=== PATIENT | male | born 1990 | race Caucasian/White ===

== ENCOUNTER 2018-08-24 10:51 | Inpatient (IN) | payer OTHER ==
[2018-08-24] MEDS ORDERED: SODIUM CHLORIDE 1,000 ML IV STA (11:22)
--- NOTE | 2018-08-24 11:31 | PDOC ---
History of Present Illness - General Chief Complaint: Redness To Affected Area Stated Complaint: SWOLLEN FOOT Time Seen by Provider: 08/24/18 11:13 History Source: Patient Exam Limitations: No Limitations - History of Present Illness Initial Comments: 08/24/18 11:08 67-hofd-csy-year-old obese male with no past medical history presents to ED with no redness swelling and pain to his left lower leg worsening in severity since . 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 Patient states has taken ibuprofen with good effect. Patient states no decreased sensation to his toes denies history of diabetes or venous-stasis ulcer Timing/Duration: getting worse Severity: mild, moderate Associated Symptoms: reports: denies symptoms Past History - Travel Traveled outside of the country in the last 30 days: No Close contact w/someone who was outside of country & ill: No - Past Medical History Allergies/Adverse Reactions: Allergies Allergy/AdvReac Type Severity Reaction Status Date / Time No Known Allergies Allergy Verified 08/24/18 10:59 Home Medications: Ambulatory Orders NK [No Known Home Medication] 08/24/18 COPD: No - Suicide/Smoking/Psychosocial Hx Smoking History: Never smoked Patient Lives Alone: No Lives with/in: spouse/SO Review of Systems - Review of Systems Able to Perform ROS?: Yes Is the patient limited [place] proficient: Yes Constitutional: No: Symptoms Reported HEENTM: No: Symptoms Reported Respiratory: No: Symptoms reported Integumentary: Yes: Bruising, Change in Color, Erythema Neurological: No: Symptoms reported Endocrine: No: Symptoms Reported Hematologic/Lymphatic: No: Symptoms Reported *Physical Exam - Vital Signs Last Vital Signs Temp Pulse Resp BP Pulse Ox 98.8 F 96 H 18 125/74 99 08/24/18 10:56 08/24/18 10:56 08/24/18 10:56 08/24/18 10:56 08/24/18 10:56 - Physical Exam General Appearance: Yes: Nourished, Appropriately Dressed. No: Apparent Distress Cardiovascular: positive: Edema (3+ pitting of left lower extremity) Vascular Pulses: Dorsalis-Pedis (R): 2+, Doralis-Pedis (L): 2+ Extremity: positive: Normal Range of Motion, Other (Noted diffuse edema and erythema extending from the left patella to the toes. Area warm to touch.). negative: Delayed Capillary Refill, Calf Tenderness Integumentary: positive: Erythema, Swelling, Ecchymosis Neurologic: positive: Motor Strength 5/5 (ambulatory with cane) ED Treatment Course - LABORATORY CBC & Chemistry Diagram: 08/24/18 12:12 08/24/18 12:12 - RADIOLOGY Radiology Studies Ordered: Category Date Time Status DUPLEX VASCUL US-1 LEG [US] Stat Ultrasound 08/24/18 11:23 Ordered Medical Decision Making - Medical Decision Making 08/24/18 11:18 Chief complaint: Worsening redness swelling and pain to left lower extremity after striking it against a metal bucket 4 days ago. Exam: Cellulitic left lower extremity concerning for DVT and early compartment syndrome secondary to extensive swelling Plan: Area circled with a permanent marker septic workup initiated along with a duplex CT with contrast and IV antibiotics. 08/24/18 13:26 Laboratory Tests 08/24/18 08/24/18 08/24/18 12:12 12:12 12:12 WBC 8.6 Hgb 13.8 Hct 40.9 Absolute Neuts (auto) 5.9 PT with INR 13.30 H INR 1.13 H VBG pH 7.42 H POC VBG pCO2 40.8 L VBG O2 Sat ([place]) 58.6 L Sodium Potassium Chloride Carbon Dioxide Anion Gap BUN Creatinine Random Glucose Lactic Acid Calcium Total Bilirubin AST ALT Troponin I 08/24/18 08/24/18 12:12 12:12 WBC Hgb Hct Absolute Neuts (auto) PT with INR INR VBG pH POC VBG pCO2 VBG O2 Sat ([place]) Sodium 137 Potassium 4.0 Chloride 105 Carbon Dioxide 26 Anion Gap 7 L BUN 11.6 Creatinine 0.9 Random Glucose 96 Lactic Acid 0.7 Calcium 8.5 Total Bilirubin 0.5 AST 20 ALT 63 H Troponin I < 0.02 Duplex of the lower extremity negative for acute pathology 08/24/18 16:08 CT of the lower extremity shows infiltrative/inflammatory changes involving the soft tissue mostly anteriorly and laterally of the visualized lower extremity compatible with cellulitis. There is a localized fluid collection located at the level of the anterior proximal tibia soft tissues measuring approximately 2.6 x 1.3 cm it is most likely represents a loculated fluid collection. No air lucency within no acute fractures identified. Micro blog sent to hospitalist 08/24/18 16:48 Case discussed With attending hospitalist and will admit to [facility]. Loculated fluid concerning for possible abscess will discussed with radiologist if able to differentiate between blood versus purulent collection *DC/Admit/Observation/Transfer Diagnosis at time of Disposition: Hematoma, Cellulitis - Discharge Dispostion Condition at time of disposition: Fair Decision to Admit order: Yes - Referrals - Patient Instructions - Post Discharge Activity
--- NOTE | 2018-08-24 11:53 | PDOC ---
*Physical Exam - Vital Signs Last Vital Signs Temp Pulse Resp BP Pulse Ox 98.8 F 96 H 18 125/74 99 08/24/18 10:56 08/24/18 10:56 08/24/18 10:56 08/24/18 10:56 08/24/18 10:56 - Physical Exam Comments: 08/24/18 11:49 gen: aaox3, walks with a cane (new) Ext: LLE with swelling, edema, anterior large hematoma, calf swelling, surrounding erythema from ankle to knee, warm to touch, compartments soft, no pain with passive extension, brisk cap refill, sensation intact, muscle strength intact, pulses intact Medical Decision Making - Medical Decision Making 08/24/18 11:52 a/p: 28yo male with local trauma to L anterior calf now with surrounding cellulitis -pt with large hematoma/ecchymotic region to anterior calf, diffuse leg swelling with cellulitis -will need labs, iv abx, ultrasound, admission, ct LE w contrast *DC/Admit/Observation/Transfer Diagnosis at time of Disposition: Hematoma, Cellulitis - Discharge Dispostion Condition at time of disposition: Fair Decision to Admit order: Yes - Referrals - Patient Instructions - Post Discharge Activity
[2018-08-24] MEDS ORDERED: VANCOMYCIN 1,000 MG in DEXTROSE 5%-WATER - 250 ML IVPB ONE (12:20)
[2018-08-24] MEDS ORDERED: PIPERACILLIN/TAZOB 4.5 GM 4.5 GM in DEXTROSE 5%-WATER 100 ML IVPB ONE (12:20)
[2018-08-24] MEDS ORDERED: VANCOMYCIN 500 MG VIAL (RESTRICTED TO ID ONLY) ONE (12:51)
[2018-08-24] MEDS ORDERED: PIPERACILLIN/TAZOB 4.5 GM 4.5 GM/100 ML BAG IVPB ONE (12:51)
[2018-08-24 12:57] LABS: VENOUS PC02 40.8 mmHg (41-51); VENOUS PH 7.42 (7.31-7.41); VENOUS PO2 31.3 mmHg (30-40)
[2018-08-24 12:58] LABS: BASO % 0.3 % (0-2.0); EOS % 1.4 % (0-4.5); HEMATOCRIT 40.9 % (35.4-49); HEMOGLOBIN 13.8 GM/dL (11.7-16.9); MCH 29.4 pg (25.7-33.7); MCHC 33.8 g/dl (32.0-35.9); MEAN CELL VOLUME 87.1 fl (80-96); MEAN PLT VOLUME 7.6 fl (7.5-11.1); MONO % 11.6 % (3.8-10.2); NEUT % 68.7 % (42.8-82.8); RDW 13.9 % (11.9-15.9); WHITE BLOOD COUNT 8.6 K/mm3 (4.0-10.0)
[2018-08-24 13:16] LABS: INR 1.13 (0.83-1.09); PLATELET COUNT 275 K/MM3 (134-434); PROTHROMBIN TIME (PATIENT) 13.3 SEC (9.7-13.0)
[2018-08-24 13:18] LABS: ACTIVATED PTT 32.4 SECONDS (25.2-36.5)
[2018-08-24 13:19] LABS: ALBUMIN 3.7 g/dl (3.4-5.0); ALK PHOS 91 U/L (45-117); ANION GAP 7 MMOL/L (8-16); BILIRUBIN,TOTAL 0.5 mg/dL (0.2-1); BLOOD UREA NITROGEN 11.6 mg/dL (7-18); CALCIUM 8.5 mg/dL (8.5-10.1); CHLORIDE 105 mmol/L (98-107); CO2 26 mmol/L (21-32); CREATININE 0.9 mg/dL (0.55-1.3); GLUCOSE,RANDOM 96 mg/dL (74-106); SGOT/AST 20 U/L (15-37); SGPT/ALT 63 U/L (13-61); SODIUM 137 mmol/L (136-145); TOT PROT 7.5 g/dl (6.4-8.2)
[2018-08-24 15:31] LABS: PH,URINE 6.5 (5.0-8.0); URINE APPEARANCE CLEAR; URINE BILIRUBIN NEGATIVE (NEGATIVE); URINE COLOR YELLOW; URINE GLUCOSE (UA) NEGATIVE (NEGATIVE); URINE KETONE NEGATIVE (NEGATIVE); URINE LEUK ESTERASE NEGATIVE (NEGATIVE); URINE NITRITE NEGATIVE (NEGATIVE); URINE PROTEIN NEGATIVE (NEGATIVE); URINE UROBILINOGEN 0.2 mg/dL (0.2-1.0)
[2018-08-24] MEDS ORDERED: DIPHTH,PERTUSS(ACELL),TET 0.5 ML DISP.SYRIN IM ONE (17:34)
--- NOTE | 2018-08-24 17:47 | HP ---
CHIEF COMPLAINT: LE swelling, erythema PCP: none HISTORY OF PRESENT ILLNESS: 28 y/o M with morbid obesity w/ no PMH who presents to the ED c/o LE swelling and erythema for the past four days to his LLE after injuring it on Saturday. As per pt, he works as a escrow officer. On Saturday, 08/22, he was at work passing supplies to his coworker when he hit his LLE on a clean metal bucket. States that he was distracted and had not seen it in his way. Later that evening, he developed a subjective fever at home and myalgias in his upper extremities. Did not have any immediate bruising to his leg after the incident. The subsequent day, he woke up to find a large erythematous rash on the anterior portion of his LLE. States that it was mildly painful and edematous. However, he was still able to go clubbing with friends that night. On Saturday, pt noticed that the edema had become worse, as well as the erythema thus he decided to come to the ED for further evaluation. During this time, his pain was mildly alleviated by advil and topical antibiotic application to the area. Denies current SPARKS, fever, chills , SOB, chest pain or pressure or changes in urinary or bowel function. Pt states he never received a tetanus vaccine as he does not have insurance. No drug injection to area. ER course was notable for: (1) IV NS 1L (2) vanc, zosyn (3) Recent Travel: denies PAST MEDICAL HISTORY: as above PAST SURGICAL HISTORY: denies Social History: works as a escrow officer. Smoking: tried for 1 yr however quit Alcohol: social Drugs: used cocaine 1x in past. never IVDA Family History: mother - DM Allergies No Known Allergies Allergy (Verified 08/24/18 10:59) HOME MEDICATIONS: Home Medications Medication Instructions Recorded NK [No Known Home Medication] 08/24/18 confirmed with patient REVIEW OF SYSTEMS +subjective fever +myalgias +erythema, edema to LLE PHYSICAL EXAMINATION Vital Signs - 24 hr 08/24/18 08/24/18 10:56 17:25 Temperature 98.8 F 98.7 F Pulse Rate 96 H Pulse Rate [ 90 Right Brachial] Respiratory 18 19 Rate Blood Pressure 125/74 Blood Pressure 142/78 [Left Arm] O2 Sat by Pulse 99 97 Oximetry (%) GENERAL: Pleasant. morbidly obese M. in NAD HEAD: Normal with no signs of trauma. EYES: Pupils equal, round and reactive to light, extraocular movements intact, sclera anicteric, conjunctiva clear. EARS, NOSE, THROAT: Ears normal, nares patent, oropharynx clear without exudates. Moist mucous membranes. NECK: Normal range of motion, supple LUNGS:+distant breath sounds d/t body habitus, clear to auscultation bilaterally. No wheezes, and no crackles. No accessory muscle use. HEART: Regular rate and rhythm, normal S1 and S2 without murmur, rub or gallop. ABDOMEN: Soft, obese, nontender, not distended, normoactive bowel sounds, no guarding, no rebound LOWER EXTREMITIES: 2+ dp pulses. +LLE: w/anterior superficial hematoma over mares , without TTP. +warmth, 1-2+ pitting edema. NEUROLOGICAL: Cranial nerves II-XII intact. PSYCHIATRIC: Cooperative. Laboratory Results 08/24/18 08/24/18 08/24/18 12:12 12:12 12:12 WBC 8.6 Hgb 13.8 Hct 40.9 Plt Count 275 PT with INR 13.30 H INR 1.13 H PTT (Actin FS) 32.4 Sodium 137 Potassium 4.0 Chloride 105 Anion Gap 7 L BUN 11.6 Creatinine 0.9 AST 20 ALT 63 H Alkaline Phosphatase 91 08/24/18 13:55 Alkaline Phosphatase Urine Protein Negative Urine Glucose (UA) Negative Urine Ketones Negative Urine Blood Negative Urine Nitrite Negative Urine Bilirubin Negative EKG: NSR, vent rate 86bpm, qtc 409ms. no st-t wave changes CT LE: cellulitis and localized fluid at anterior prox tibia 2.6x1.3cm loculated fluid ASSESSMENT/PLAN: 28 y/o M with morbid obesity w/ no PMH who presents to the ED c/o LE swelling and erythema for the past four days to his LLE after injuring it on Saturday. #LLE Cellulitis -not septic. s/p injury on clean bucket. as pt has not received tetanus vacc before will give tdap. -c/w vanc 2g IVPB qd (loading dose d/t increased wt), zosyn -f/u blood cx -will need surgery consult in AM as w/loculated fluid. to determine drainage, etc. has coags. will order T+S -f/u a1c, HIV -ID consult: Dr. Zhou #morbid obesity -will benefit from bariatric referral on d/c #F/E/N no IVF required at this time continue to follow lytes cholesterol-controlled diet. NPO after MN in case of procedure #PPX DVT: lovenox. hold after MN as above. #Dispo admit to med-surg Visit type - Emergency Visit Emergency Visit: Yes ED Registration Date: 08/24/18 Care time: The patient presented to the Emergency Department on the above date and was hospitalized for further evaluation of their emergent condition. - New Patient This patient is new to me today: Yes Date on this admission: 08/24/18 - Critical Care Critical Care patient: No
--- NOTE | 2018-08-24 17:56 | PN ---
Teaching Attending Note Name of Resident: Thalia Gonzales ATTENDING PHYSICIAN STATEMENT I saw and evaluated the patient. I reviewed the resident's note and discussed the case with the resident. I agree with the resident's findings and plan as documented. SUBJECTIVE: 28yo M wtih PMH morbid obesity presenting to the ER wtih LLE pain and erythema. states he kicked a metal bucket 3 days ago. started developing erythema, pain and swelling in the leg over the past 2 days. with subjective fevers and body aches today which prompted him to come to the ER. denies CP, N/V/C/D. never received tetanus vaccine. does not take medications. denies IVDA OBJECTIVE: Last Vital Signs Temp Pulse Resp BP Pulse Ox 98.7 F 90 19 142/78 97 08/24/18 17:25 08/24/18 17:25 08/24/18 17:25 08/24/18 17:25 08/24/18 17:25 General NAD CV S1 S2 RRR no murmur/rub/gallop Lungs CTA B/l no wheezing/rales/rhonchi abdomen soft NT/ND obese Extremities LLE erythema to mid mares more prominent anteriorly then light streaking circumferential, warm, tender mild fluctuance lateral to mid mares. pulse intact ASSESSMENT AND PLAN: 28yo M with PMH morbid obesity presenting to the ER with LLE cellulitis with questionable abscess 1. LLE cellulitis with abscess-afebrile no leukocytosis. loculated collection seen on CT scan most likely represents abscess. will possibly require drainage. received vanco and zosyn in the ER. will need tetanus vaccine. claims bucket was clean and new, no signs of rust. check HIV and A1c. f/u Bcx (obtained prior to abx given) 2. Morbid obesity- BMI 46. would benefit from bariatric surgery. referral on discharge 3. DVT ppx- lovenox
[2018-08-24] MEDS ORDERED: ENOXAPARIN NA (PORCINE) 40 MG/0.4 ML DISP.SYRIN SQ SCH (18:00)
[2018-08-24] MEDS ORDERED: ENOXAPARIN NA (PORCINE) 80 MG/0.8 ML DISP.SYRIN SQ ONE (18:12)
[2018-08-24] MEDS ORDERED: PIPERACILLIN/TAZOBACTAM 3.375 GM VIAL IVPB ONE (20:48)
[2018-08-24] MEDS ORDERED: DEXTROSE 5%-WATER - 50 ML IVPB ONE (20:49)
[2018-08-24] MEDS: PIPERACILLIN/TAZOB 3.375 GM 3.375 GM in DEXTROSE 5%-WATER - 50 ML IVPB SCH (20:50)
[2018-08-25] MEDS ORDERED: PIPERACILLIN/TAZOBACTAM 3.375 GM VIAL IVPB ONE (03:11)
[2018-08-25] MEDS ORDERED: DEXTROSE 5%-WATER - 50 ML IVPB ONE (03:12)
[2018-08-25] MEDS: PIPERACILLIN/TAZOB 3.375 GM 3.375 GM in DEXTROSE 5%-WATER - 50 ML IVPB SCH ×4 (03:25→14:37)
[2018-08-25 07:17] LABS: BASO % 0.3 % (0-2.0); EOS % 2.3 % (0-4.5); HEMOGLOBIN 13.9 GM/dL (11.7-16.9); LYMPH % 26.4 % (8-40); MCH 29.5 pg (25.7-33.7); MEAN CELL VOLUME 86.8 fl (80-96); MEAN PLT VOLUME 7.4 fl (7.5-11.1); MONO % 10.4 % (3.8-10.2); NEUT % 60.6 % (42.8-82.8); PLATELET COUNT 301 K/MM3 (134-434); RBC 4.72 M/mm3 (4.00-5.60); WHITE BLOOD COUNT 7.5 K/mm3 (4.0-10.0)
[2018-08-25 07:40] LABS: BLOOD UREA NITROGEN 12.3 mg/dL (7-18); CALCIUM 8.5 mg/dL (8.5-10.1); CREATININE 0.9 mg/dL (0.55-1.3); MAGNESIUM 2.5 mg/dL (1.8-2.4); PHOSPHOROUS 3.6 mg/dL (2.5-4.9); POTASSIUM 4.1 mmol/L (3.5-5.1)
--- NOTE | 2018-08-25 09:38 | EKG ---
Test Reason : Blood Pressure : / mmHG Vent. Rate : 086 BPM Atrial Rate : 086 BPM P-R Int : 164 ms QRS Dur : 084 ms QT Int : 342 ms P-R-T Axes : 028 010 021 degrees QTc Int : 409 ms NORMAL SINUS RHYTHM NORMAL ECG NO PREVIOUS ECGS AVAILABLE Confirmed by LEWIS MONROY MD ([id number]) on 08/25/2018 9:38:09 AM Referred By: Confirmed By:LEWIS MONROY MD
--- NOTE | 2018-08-25 10:30 | CONSULT ---
- Consultation REQUESTING PROVIDER: Castro NORIEGA CONSULT REQUEST: We have been asked to surgically evaluate this patient for post traumatic soft tissue injuries and cellulitis of the LLE. PCP:Parul Erazo HISTORY OF PRESENT ILLNESS: Blunt trauma to LLE # days ago; developed pain and swelling and a rash and came to the ER for evaluation. PMHx: none PSHx: none Home Medications Medication Instructions Recorded NK [No Known Home Medication] 08/24/18 Allergies Allergy/AdvReac Type Severity Reaction Status Date / Time No Known Allergies Allergy Verified 08/24/18 10:59 REVIEW OF SYSTEMS: CONSTITUTIONAL: Absent: fever, chills, diaphoresis, generalized weakness, malaise, loss of appetite, weight change CARDIOVASCULAR: Absent: chest pain, syncope, palpitations, irregular heart rate, lightheadedness , peripheral edema RESPIRATORY: Absent: cough, shortness of breath, dyspnea with exertion, wheezing, stridor, hemoptysis GASTROINTESTINAL: Absent: abdominal pain, abdominal distension, nausea, vomiting, diarrhea, constipation, melena, hematochezia GENITOURINARY: Absent: dysuria, frequency, urgency, hesitancy, hematuria, flank pain, genital pain MUSCULOSKELETAL: Absent: myalgia, arthralgia, joint swelling, back pain, neck pain SKIN: Absent: rash, itching, pallor HEMATOLOGIC/IMMUNOLOGIC: Absent: easy bleeding, easy bruising, lymphadenopathy NEUROLOGIC: Absent: headache, focal weakness, paresthesias, dizziness, unsteady gait, seizure, mental status changes, bladder or bowel incontinence PSYCHIATRIC: Absent: anxiety, depression, suicidal or homicidal ideation, hallucinations. PHYSICAL EXAM: GENERAL: Awake, alert, and fully oriented, in no acute distress. HEAD: Normal with no signs of trauma. EYES: sclera anicteric, conjunctiva clear. NECK: Normal ROM, supple without lymphadenopathy, JVD, or masses. ABDOMEN: Soft, nontender, not distended, normoactive bowel sounds, no guarding, no rebound, no masses. No organomegaly. MUSCULOSKELETAL: Normal ROM at all joints. No bony deformities or tenderness. No CVA tenderness. UPPER EXTREMITIES: 2+ pulses, warm, well-perfused. No cyanosis. Cap refill <2 seconds. No peripheral edema. LOWER EXTREMITIES: 2+ pulses, warm, well-perfused. No calf tenderness. No peripheral edema. NEUROLOGICAL: Normal speech, gait not observed. PSYCH: Cooperative. Good eye contact. Appropriate mood and affect. SKIN: Warm, dry, normal turgor, erythema of the LLE below the knee w/minimal ttp ; sensation intact; ?erysepalis ? type rash present w/minimal surrounding warmth ; there is mild to moderate sts; ther is no calf tenderness or pain on active and PROM; o/w negative. Vital Signs Temperature 98.3 F 08/25/18 08:05 Pulse Rate 87 08/25/18 08:05 Respiratory Rate 18 08/25/18 08:05 Blood Pressure 147/88 08/25/18 08:05 O2 Sat by Pulse Oximetry (%) 97 08/24/18 17:25 Lab Results WBC 7.5 K/mm3 (4.0-10.0) 08/25/18 06:40 RBC 4.72 M/mm3 (4.00-5.60) 08/25/18 06:40 Hgb 13.9 GM/dL (11.7-16.9) 08/25/18 06:40 Hct 41.0 % (35.4-49) 08/25/18 06:40 MCV 86.8 fl (80-96) 08/25/18 06:40 MCHC 34.0 g/dl (32.0-35.9) 08/25/18 06:40 RDW 14.0 % (11.9-15.9) 08/25/18 06:40 Plt Count 301 K/MM3 (134-434) 08/25/18 06:40 Sodium 139 mmol/L (136-145) 08/25/18 06:40 Potassium 4.1 mmol/L (3.5-5.1) 08/25/18 06:40 Chloride 106 mmol/L (98-107) 08/25/18 06:40 Carbon Dioxide 26 mmol/L (21-32) 08/25/18 06:40 Anion Gap 8 MMOL/L (8-16) 08/25/18 06:40 BUN 12.3 mg/dL (7-18) 08/25/18 06:40 Creatinine 0.9 mg/dL (0.55-1.3) 08/25/18 06:40 Random Glucose 96 mg/dL (74-106) 08/25/18 06:40 Calcium 8.5 mg/dL (8.5-10.1) 08/25/18 06:40 Blood Type O POSITIVE 08/24/18 19:58 Antibody Screen Negative 08/24/18 17:50 INR 1.13 (0.83-1.09) H 08/24/18 12:12 CT LLE reviewed IMP: post traumatic soft tissue injury LLE w/cellulitis PLAN: Suggest leg elevation; no clinical evidence of a collection; would monitor w/frequent exams; IVAB's as indicated; will f/u. D/w Dr. Jak Erazo. Aydin Carrington MD FACS
[2018-08-25] MEDS ORDERED: VANCOMYCIN 2,000 MG in DEXTROSE 5%-WATER - 500 ML IVPB ONE (12:00)
[2018-08-25] MEDS ORDERED: VANCOMYCIN 2,000 MG in DEXTROSE 5%-WATER - 500 ML IVPB SCH (12:00)
[2018-08-25] MEDS ORDERED: VANCOMYCIN HCL 1,500 MG in DEXTROSE 5%-WATER - 250 ML IVPB SCH (12:45)
--- NOTE | 2018-08-25 12:52 | PN ---
Progress Note (short form) - Note Progress Note: ID CONSULT DICTATED CELLULITIS L LE ? INFECTED HEMATOMA + BC GPCCL R/O STAPH BACTEREMIA SECONDARY TO SKIN FOCUS REPEAT BC EMPIRIC VANCOMYCIN/ CEFTRIAXONE
--- NOTE | 2018-08-25 13:11 | PN ---
Physical Exam: SUBJECTIVE: Patient seen and examined at bedside. Pt stated that pain is improving. only feels pressure when palpated or tries walking. OBJECTIVE: Vital Signs Period Temp Pulse Resp BP Sys/Lorenzo Pulse Ox Last 24 Hr 98.3 F-98.8 F 86-100 18-19 131-149/53-88 97-98 GENERAL: The patient is awake, alert, and fully oriented, in no acute distress. HEAD: Normal with no signs of trauma. EYES: extraocular movements intact LUNGS: Breath sounds equal, clear to auscultation bilaterally, no wheezes, no crackles, no accessory muscle use. HEART: Regular rate and rhythm, S1, S2 without murmur, rub or gallop. ABDOMEN: Soft, nontender, nondistended, normoactive bowel sounds. EXTREMITIES: LLE circumferential erythema and swelling. PSYCH: Normal mood, normal affect. Laboratory Results - last 24 hr 08/24/18 08/24/18 08/24/18 12:12 12:12 12:12 WBC 8.6 RBC 4.70 Hgb 13.8 Hct 40.9 MCV 87.1 MCH 29.4 MCHC 33.8 RDW 13.9 Plt Count 275 MPV 7.6 Absolute Neuts (auto) 5.9 Neutrophils % 68.7 Lymphocytes % 18.0 Monocytes % 11.6 H Eosinophils % 1.4 Basophils % 0.3 Nucleated RBC % 0 PT with INR 13.30 H INR 1.13 H PTT (Actin FS) 32.4 VBG pH 7.42 H POC VBG pCO2 40.8 L POC VBG pO2 31.3 VBG HCO3 25.9 VBG O2 Sat ([place]) 58.6 L VBG Base Excess 1.7 Sodium Potassium Chloride Carbon Dioxide Anion Gap BUN Creatinine Est GFR (CKD-EPI)AfAm Est GFR (CKD-EPI)NonAf Random Glucose Hemoglobin A1c % Lactic Acid Calcium Phosphorus Magnesium Total Bilirubin AST ALT Alkaline Phosphatase Troponin I Total Protein Albumin Urine Color Urine Appearance Urine pH Ur Specific Goodman Urine Protein Urine Glucose (UA) Urine Ketones Urine Blood Urine Nitrite Urine Bilirubin Urine Urobilinogen Ur Leukocyte Esterase HIV 1&2 Antibody Screen HIV P24 Antigen Blood Type Antibody Screen 08/24/18 08/24/18 08/24/18 12:12 12:12 13:55 WBC RBC Hgb Hct MCV MCH MCHC RDW Plt Count MPV Absolute Neuts (auto) Neutrophils % Lymphocytes % Monocytes % Eosinophils % Basophils % Nucleated RBC % PT with INR INR PTT (Actin FS) VBG pH POC VBG pCO2 POC VBG pO2 VBG HCO3 VBG O2 Sat ([place]) VBG Base Excess Sodium 137 Potassium 4.0 Chloride 105 Carbon Dioxide 26 Anion Gap 7 L BUN 11.6 Creatinine 0.9 Est GFR (CKD-EPI)AfAm 132.37 Est GFR (CKD-EPI)NonAf 114.21 Random Glucose 96 Hemoglobin A1c % Lactic Acid 0.7 Calcium 8.5 Phosphorus Magnesium Total Bilirubin 0.5 AST 20 ALT 63 H Alkaline Phosphatase 91 Troponin I < 0.02 Total Protein 7.5 Albumin 3.7 Urine Color Yellow Urine Appearance Clear Urine pH 6.5 Ur Specific Goodman 1.013 Urine Protein Negative Urine Glucose (UA) Negative Urine Ketones Negative Urine Blood Negative Urine Nitrite Negative Urine Bilirubin Negative Urine Urobilinogen 0.2 Ur Leukocyte Esterase Negative HIV 1&2 Antibody Screen HIV P24 Antigen Blood Type Antibody Screen 08/24/18 08/24/18 08/24/18 17:50 17:50 17:50 WBC RBC Hgb Hct MCV MCH MCHC RDW Plt Count MPV Absolute Neuts (auto) Neutrophils % Lymphocytes % Monocytes % Eosinophils % Basophils % Nucleated RBC % PT with INR INR PTT (Actin FS) VBG pH POC VBG pCO2 POC VBG pO2 VBG HCO3 VBG O2 Sat ([place]) VBG Base Excess Sodium Potassium Chloride Carbon Dioxide Anion Gap BUN Creatinine Est GFR (CKD-EPI)AfAm Est GFR (CKD-EPI)NonAf Random Glucose Hemoglobin A1c % 6.0 Lactic Acid Calcium Phosphorus Magnesium Total Bilirubin AST ALT Alkaline Phosphatase Troponin I Total Protein Albumin Urine Color Urine Appearance Urine pH Ur Specific Goodman Urine Protein Urine Glucose (UA) Urine Ketones Urine Blood Urine Nitrite Urine Bilirubin Urine Urobilinogen Ur Leukocyte Esterase HIV 1&2 Antibody Screen Negative HIV P24 Antigen Negative Blood Type O POSITIVE Antibody Screen Negative 08/24/18 08/25/18 08/25/18 19:58 06:40 06:40 WBC 7.5 RBC 4.72 Hgb 13.9 Hct 41.0 MCV 86.8 MCH 29.5 MCHC 34.0 RDW 14.0 Plt Count 301 MPV 7.4 L Absolute Neuts (auto) 4.6 Neutrophils % 60.6 Lymphocytes % 26.4 D Monocytes % 10.4 H Eosinophils % 2.3 Basophils % 0.3 Nucleated RBC % 0 PT with INR INR PTT (Actin FS) VBG pH POC VBG pCO2 POC VBG pO2 VBG HCO3 VBG O2 Sat ([place]) VBG Base Excess Sodium 139 Potassium 4.1 Chloride 106 Carbon Dioxide 26 Anion Gap 8 BUN 12.3 Creatinine 0.9 Est GFR (CKD-EPI)AfAm 132.37 Est GFR (CKD-EPI)NonAf 114.21 Random Glucose 96 Hemoglobin A1c % Lactic Acid Calcium 8.5 Phosphorus 3.6 Magnesium 2.5 H Total Bilirubin AST ALT Alkaline Phosphatase Troponin I Total Protein Albumin Urine Color Urine Appearance Urine pH Ur Specific Goodman Urine Protein Urine Glucose (UA) Urine Ketones Urine Blood Urine Nitrite Urine Bilirubin Urine Urobilinogen Ur Leukocyte Esterase HIV 1&2 Antibody Screen HIV P24 Antigen Blood Type O POSITIVE Antibody Screen Active Medications Generic Name Dose Route Start Last Admin Trade Name Freq PRN Reason Stop Dose Admin Ceftriaxone Sodium 2 gm/ 100 mls @ 200 mls/hr 08/25/18 13:00 Dextrose IVPB DAILY MARCELA Protocol Vancomycin HCl 1,500 mg/ 500 mls @ 250 mls/hr 08/25/18 12:53 Dextrose IVPB Q12H [facility] Protocol CBC, BMP 08/25/18 06:40 08/25/18 06:40 Microbiology 08/24/18 12:12 Blood - Peripheral Venous Blood Culture - Preliminary NO GROWTH OBTAINED AFTER 24 HOURS, INCUBATION TO CONTINUE FOR 4 DAYS. 08/24/18 12:40 Blood - Peripheral Venous Blood Culture - Preliminary Pending Organism ASSESSMENT/PLAN: pt is 28 yo obese M admitted with LLE cellulitis. Pt was started on Vanc and zosyn on 08/24. Blood cultures obtained. Swelling and erythema improving. 1. Cellulitis - follow ID recs Empiric vancomycin/cefriaxone -pt afebrile, no leukocytosis -1 bottle from blood culture showed gram + cocci. awaiting results from 2nd blood culture -leg elevation -pt followed by surgery 2. Obesity -Counseled on diet and exercise -HbA1c: 6.0 -bariatric referral on d/c 3. DVT ppx- Lovenox 40mg Visit type - Emergency Visit Emergency Visit: No - New Patient This patient is new to me today: No - Critical Care Critical Care patient: No
--- NOTE | 2018-08-25 13:27 | CONS ---
INFECTIOUS DISEASE CONSULTATION DATE OF CONSULTATION: DATE OF DICTATION: 08/25/2018 HISTORY: The patient is a 28-year-old morbidly obese male who was evaluated for cellulitis of the left lower extremity. He reports that he had sustained blunt trauma to his left mares after striking it against a metal bucket on July. Initially, he did not notice any significant injury. Over the next 24 hours, he developed worsening erythema, warmth, swelling, and pain of the left lower extremity. He presented to the emergency room with marked left lower extremity swelling as well as an area of cellulitis present over the pretibial area. He was empirically treated with vancomycin and Zosyn. Blood cultures obtained on admission are positive for gram-positive cocci in clusters in 1 bottle. He did report subjective fever. Denies any shaking chills. Denies prior history of serious soft tissue infection requiring hospitalization or history of MRSA. A Doppler was performed and was negative for DVT. CAT scan, however, showed a focal fluid collection in the pretibial area. He was seen in consultation by Surgery and advised to treat medically. He reports significant improvement in the swelling, erythema, and pain of the left lower extremity. He had been unable to ambulate previously secondary to the pain. PAST MEDICAL HISTORY: Negative. ALLERGIES: No known allergies. LABORATORY DATA: White count 7.5, creatinine 0.9. Urinalysis negative. Blood cultures: Gram-positive cocci in clusters in 1 bottle. PHYSICAL EXAMINATION: General: He is awake and alert. He is not acutely toxic appearing. Morbidly obese. Vital Signs: Temperature 98.3, blood pressure 147/88, pulse 87 regular, respirations 18 per minute. HEENT: Sclerae anicteric. Heart: Sounds S1, S2. Lungs: Clear. Abdomen: Obese, soft, nontender. Extremities: Examination of the lower extremities, there is diffuse swelling of the left lower extremity from below the knee to the foot. There is a patchy area of well-circumscribed erythema, which is intensely red approximately 5 x 12 cm below the left knee. It is warm to touch and tender. There is no lymphangitic streaking. No crepitus or fluctuance. IMPRESSION: 1. Cellulitis, left lower extremity status post traumatic injury. 2. Rule out infected hematoma. 3. Positive blood cultures, rule out Staphylococcal bacteremia secondary to skin focus. PLAN: Repeat blood cultures. Empiric antibiotic coverage with vancomycin and ceftriaxone. Elevation. Await identification of blood isolet. Further recommendations pending cultures. We will follow. Thank you for the kind referral. JOSE ROLDAN M.D. [id number]
--- NOTE | 2018-08-25 14:38 | PN ---
Teaching Attending Note Name of Resident: Madison Escudero ATTENDING PHYSICIAN STATEMENT I saw and evaluated the patient. I reviewed the resident's note and discussed the case with the resident. I agree with the resident's findings and plan as documented. SUBJECTIVE:states swelling and pain improved. denies Cp, SOB, fever, chills OBJECTIVE: Last Vital Signs Temp Pulse Resp BP Pulse Ox 98.4 F 86 18 137/88 97 08/25/18 12:00 08/25/18 12:00 08/25/18 12:00 08/25/18 12:00 08/25/18 09:00 General NAD Extremities LLE erythema to mid mares more prominent anteriorly circumferential erythema mostly resolved. area remains warm but not tender. pulse intact ASSESSMENT AND PLAN: 28yo M with PMH morbid obesity presenting to the ER with LLE cellulitis with questionable abscess 1. LLE cellulitis with Bacteremia- modest improvement since yesterday. seen by surgery and no abscess at this time to drain. Bcx showing GPC in 1 bottle. could be contamination. repeat Bcx sent. on Ceftriaxone and zosyn day 2. A1c and HIV are negative. received tetanus vaccine. f/u official cx report 2. Morbid obesity- BMI 46. would benefit from bariatric surgery. referral on discharge 3. DVT ppx- lovenox 4. spoke with present at bedside. all questions answered. verbalized understanding and agreement
[2018-08-25] MEDS ORDERED: DEXTROSE 5%-WATER 100 ML IVPB ONE (14:51)
[2018-08-25] MEDS: CEFTRIAXONE 2 GM in DEXTROSE 5%-WATER 100 ML IVPB SCH (14:53)
[2018-08-25] MEDS: VANCOMYCIN HCL 1,500 MG in DEXTROSE 5%-WATER - 500 ML IVPB SCH (14:54)
[2018-08-25] MEDS: ENOXAPARIN NA (PORCINE) 40 MG/0.4 ML DISP.SYRIN SQ SCH (22:11)
[2018-08-26] MEDS: VANCOMYCIN HCL 1,500 MG in DEXTROSE 5%-WATER - 500 ML IVPB SCH ×2 (02:02→12:21)
--- NOTE | 2018-08-26 08:32 | PN ---
Progress Note (short form) - Note Progress Note: Pt seen and examined this AM. Reports his LLE is significantly improved since yesterday. Has been oob to the restroom without issue, reports improvement in pain with ambulation. Tolerating PO, voiding. Denioes cp/sob, n/v/d. Vital Signs Temp 97.9 F 08/26/18 06:00 Pulse 72 08/26/18 06:00 Resp 18 08/26/18 06:00 BP 116/60 08/26/18 06:00 Pulse Ox 97 08/25/18 21:00 Intake & Output 08/25/18 08/25/18 08/26/18 11:59 23:59 11:59 Intake Total 290 1660 Balance 290 1660 Intake: IVPB 50 550 Oral 240 1110 Other: Voiding Method Toilet Toilet # Unmeasured Voids Void 1 1 Bowel Movement No Gen: awake, alert, nad resting in bed Resp: Unlabored on RA Lower Ext: LLE with superficial rash, minimal ttp, no palpable fluid collection , erythema seems to have decreased from outline. Calf soft, no ttp. Able to wiggle toes without issue, SILT. Palpable dp/pt. No pain illicited with dorsiflexion/plantarflexion. A/P: 28 y/o M with morbid obesity w/ no PMHx a/w swelling/rash and ?fluid collection s/p blunt trauma. Afebrile, VSS Am labs pending -F/u AM labs and blood cultures -Continue LLE elevation while at rest -IV abx per ID -Continue serial Leg exams -Will continue to follow d/w attending Dr Carrington
[2018-08-26 08:36] LABS: HEMATOCRIT 40.5 % (35.4-49); HEMOGLOBIN 13.8 GM/dL (11.7-16.9); MCH 29.5 pg (25.7-33.7); MEAN CELL VOLUME 86.8 fl (80-96); MEAN PLT VOLUME 7.5 fl (7.5-11.1); PLATELET COUNT 314 K/MM3 (134-434); RBC 4.67 M/mm3 (4.00-5.60); RDW 13.7 % (11.9-15.9); WHITE BLOOD COUNT 6.5 K/mm3 (4.0-10.0)
[2018-08-26 08:51] LABS: BLOOD UREA NITROGEN 13.1 mg/dL (7-18); CALCIUM 8.3 mg/dL (8.5-10.1); CREATININE 0.8 mg/dL (0.55-1.3); POTASSIUM 4.1 mmol/L (3.5-5.1)
[2018-08-26] MEDS ORDERED: DEXTROSE 5%-WATER 100 ML IVPB ONE (10:00)
[2018-08-26] MEDS: CEFTRIAXONE 2 GM in DEXTROSE 5%-WATER 100 ML IVPB SCH (10:19)
[2018-08-26] MEDS: ENOXAPARIN NA (PORCINE) 40 MG/0.4 ML DISP.SYRIN SQ SCH (10:20)
--- NOTE | 2018-08-26 14:03 | PN ---
Teaching Attending Note Name of Resident: Madison Escudero ATTENDING PHYSICIAN STATEMENT I saw and evaluated the patient. I reviewed the resident's note and discussed the case with the resident. I agree with the resident's findings and plan as documented. SUBJECTIVE: Reports improvement in LLE pain/tenderness/erythema. No fever/ chills. OBJECTIVE: Afebrile, Hemodynamically Stable. Last Vital Signs Temp Pulse Resp BP Pulse Ox 97.9 F 72 18 116/60 97 08/26/18 06:00 08/26/18 06:00 08/26/18 06:00 08/26/18 06:00 08/25/18 21:00 HEENT - Atraumatic, Normocephalic. Heart - S1, S2, RRR Lungs - clear to auscultation Abdomen - High BMI, Soft, non-tender. Extremities - LLE erythema/tenderness/swelling improving. Area on anterior mares with some hyperpigmentation/small bullae Laboratory Results - last 24 hr 08/26/18 08/26/18 07:55 07:55 WBC 6.5 RBC 4.67 Hgb 13.8 Hct 40.5 MCV 86.8 MCH 29.5 MCHC 34.0 RDW 13.7 Plt Count 314 MPV 7.5 Sodium 138 Potassium 4.1 Chloride 105 Carbon Dioxide 26 Anion Gap 7 L BUN 13.1 Creatinine 0.8 Est GFR (CKD-EPI)AfAm 138.93 Est GFR (CKD-EPI)NonAf 119.87 Random Glucose 91 Calcium 8.3 L Current Medications Generic Name Dose Route Start Last Admin Trade Name Freq PRN Reason Stop Dose Admin Enoxaparin Sodium 40 mg 08/25/18 21:00 08/26/18 10:20 Lovenox - SQ 40 mg DAILY MARCELA Administration Ceftriaxone Sodium 2 gm/ 100 mls @ 200 mls/hr 08/25/18 13:00 08/26/18 10:19 Dextrose IVPB 200 mls/hr DAILY MARCELA Administration Protocol Vancomycin HCl 1,500 mg/ 500 mls @ 250 mls/hr 08/25/18 12:53 08/26/18 12:21 Dextrose IVPB 250 mls/hr Q12H MARCELA Administration Protocol Home Medications Medication Instructions Recorded NK [No Known Home Medication] 08/24/18 ASSESSMENT AND PLAN: 28 year old morbidly obese male with no significant medical history, presents with LLE Cellulitis, found to have Blood Cx positive for Coag neg Staph (in 1 bottle). 1. LLE cellulitis - improving Coag neg Bacteremia - likely contaminant. Repeat Blood Cx pending. CT LE - Cellulitis with loculated collection. Evaluated by Surgery - no need for intervention Afebrile, Hemodynamically Stable. Continue Ceftriaxone/Vancomycin. ID following. 2. Morbid obesity - BMI 46. May benefit from bariatric surgery consultation/ referral on discharge. DVT Px - Lovenox SQ.
--- NOTE | 2018-08-26 17:02 | PN ---
Progress Note, Physician History of Present Illness: AWAKE, SEATED IN BED NO C/O LEG PAIN REPORTS LESS LEG SWELLING NO C/O FEVER/ CHILLS BC SCN X 1 BOTTLE - Current Medication List Current Medications: Active Medications Enoxaparin Sodium (Lovenox -) 40 mg SQ DAILY MARCELA Last Admin: 08/26/18 10:20 Dose: 40 mg Ceftriaxone Sodium 2 gm/ (Dextrose) 100 mls @ 200 mls/hr IVPB DAILY MARCELA; Protocol Last Admin: 08/26/18 10:19 Dose: 200 mls/hr Vancomycin HCl 1,500 mg/ (Dextrose) 500 mls @ 250 mls/hr IVPB Q12H MARCELA; Protocol Last Admin: 08/26/18 12:21 Dose: 250 mls/hr - Objective Vital Signs: Vital Signs Temperature 98.3 F 08/26/18 14:00 Pulse Rate 78 08/26/18 14:00 Respiratory Rate 20 08/26/18 14:00 Blood Pressure 141/65 08/26/18 14:00 O2 Sat by Pulse Oximetry (%) 97 08/25/18 21:00 Constitutional: Yes: Obese Extremities: Yes: Other (+ L LE EDEMA FADING ERYTHEMA L LE) Labs: CBC, BMP 08/26/18 07:55 08/26/18 07:55 INR, PTT INR 1.13 (0.83-1.09) H 08/24/18 12:12 Assessment/Plan CELLULITIS LE IMPROVED + BC = CONTAMINANT CONTINUE IV ANTIBIOTICS ELEVATION
--- NOTE | 2018-08-26 17:11 | PN ---
Physical Exam: SUBJECTIVE: Patient seen and examined at bedside. erythema and swelling is decreased. pt states he has no pain. OBJECTIVE: Vital Signs Period Temp Pulse Resp BP Sys/Lorenzo Pulse Ox Last 24 Hr 97.9 F-98.3 F 72-85 18-20 111-141/52-76 97 GENERAL: The patient is awake, alert, and fully oriented, in no acute distress. LUNGS: Breath sounds equal, clear to auscultation bilaterally, no wheezes, no crackles, no accessory muscle use. HEART: Regular rate and rhythm, S1, S2 without murmur, rub or gallop. ABDOMEN: Soft, nontender, nondistended, normoactive bowel sounds, no guarding EXTREMITIES: 2+ pulses, warm, well-perfused, LLE erythema on anterior mares and swelling. NEUROLOGICAL: Cranial nerves II through XII grossly intact. Normal speech, gait not observed. PSYCH: Normal mood, normal affect. SKIN: Warm, dry, normal turgor, no rashes or lesions noted Laboratory Results - last 24 hr 08/26/18 08/26/18 07:55 07:55 WBC 6.5 RBC 4.67 Hgb 13.8 Hct 40.5 MCV 86.8 MCH 29.5 MCHC 34.0 RDW 13.7 Plt Count 314 MPV 7.5 Sodium 138 Potassium 4.1 Chloride 105 Carbon Dioxide 26 Anion Gap 7 L BUN 13.1 Creatinine 0.8 Est GFR (CKD-EPI)AfAm 138.93 Est GFR (CKD-EPI)NonAf 119.87 Random Glucose 91 Calcium 8.3 L Microbiology 08/25/18 13:13 Blood - Peripheral Venous Blood Culture - Preliminary NO GROWTH OBTAINED AFTER 24 HOURS, INCUBATION TO CONTINUE FOR 4 DAYS. 08/25/18 13:08 Blood - Peripheral Venous Blood Culture - Preliminary NO GROWTH OBTAINED AFTER 24 HOURS, INCUBATION TO CONTINUE FOR 4 DAYS. 08/24/18 12:12 Blood - Peripheral Venous Blood Culture - Preliminary NO GROWTH OBTAINED AFTER 48 HOURS, INCUBATION TO CONTINUE FOR 3 DAYS. 08/24/18 12:40 Blood - Peripheral Venous Blood Culture - Preliminary Staphylococcus Coagulase Neg Active Medications Generic Name Dose Route Start Last Admin Trade Name Freq PRN Reason Stop Dose Admin Enoxaparin Sodium 40 mg 08/25/18 21:00 08/26/18 10:20 Lovenox - SQ 40 mg DAILY MARCELA Administration Ceftriaxone Sodium 2 gm/ 100 mls @ 200 mls/hr 08/25/18 13:00 08/26/18 10:19 Dextrose IVPB 200 mls/hr DAILY MARCELA Administration Protocol Vancomycin HCl 1,500 mg/ 500 mls @ 250 mls/hr 08/25/18 12:53 08/26/18 12:21 Dextrose IVPB 250 mls/hr Q12H MARCELA Administration Protocol ASSESSMENT/PLAN: pt is 28 yo obese M admitted with LLE cellulitis. Pt was started on Vanc and zosyn on 08/24. Blood cultures obtained. Swelling and erythema improving. 1. Cellulitis - follow ID recs Empiric vancomycin (day 3) /cefriaxone(day2). ID recommends to continue IV antibiotics -pt afebrile, no leukocytosis -1 bottle from blood culture showed gram + cocci. results from 2nd blood culture are negative, indicating the positive bottle was likely 2/2 contamination -continue leg elevation -pt followed by surgery 2. Obesity -Counseled on diet and exercise -HbA1c: 6.0 -bariatric referral on d/c 3. DVT ppx- Lovenox 40mg Visit type - Emergency Visit Emergency Visit: No - New Patient This patient is new to me today: No - Critical Care Critical Care patient: No
[2018-08-27] MEDS: VANCOMYCIN HCL 1,500 MG in DEXTROSE 5%-WATER - 500 ML IVPB SCH ×2 (01:45→13:26)
[2018-08-27] MEDS ORDERED: PT OWN MED DRAWER 7, Y5N ONE (02:11)
[2018-08-27 08:37] LABS: HEMATOCRIT 40.6 % (35.4-49); HEMOGLOBIN 13.7 GM/dL (11.7-16.9); MCH 29.4 pg (25.7-33.7); MCHC 33.8 g/dl (32.0-35.9); MEAN CELL VOLUME 86.8 fl (80-96); MEAN PLT VOLUME 7.4 fl (7.5-11.1); PLATELET COUNT 319 K/MM3 (134-434); RBC 4.68 M/mm3 (4.00-5.60); WHITE BLOOD COUNT 6.2 K/mm3 (4.0-10.0)
[2018-08-27 08:45] LABS: ALBUMIN 3.3 g/dl (3.4-5.0); BILIRUBIN,TOTAL 0.4 mg/dL (0.2-1); BLOOD UREA NITROGEN 13.7 mg/dL (7-18); CALCIUM 8.7 mg/dL (8.5-10.1); CREATININE 0.8 mg/dL (0.55-1.3); MAGNESIUM 2.5 mg/dL (1.8-2.4); POTASSIUM 4.2 mmol/L (3.5-5.1); TOT PROT 7.1 g/dl (6.4-8.2)
--- NOTE | 2018-08-27 09:13 | PN ---
Physical Exam: SUBJECTIVE: Patient seen and examined at bedside. Pt states no pain and no complaints. OBJECTIVE: Vital Signs Period Temp Pulse Resp BP Sys/Lorenzo Pulse Ox Last 24 Hr 98.2 F-98.4 F 76-83 16-20 122-141/62-75 97-98 GENERAL: The patient is awake, alert, and fully oriented, in no acute distress. LUNGS: Breath sounds equal, clear to auscultation bilaterally, no wheezes, no crackles, no accessory muscle use. HEART: Regular rate and rhythm, S1, S2 without murmur, rub or gallop. ABDOMEN: Soft, nontender, nondistended, normoactive bowel sounds EXTREMITIES: 2+ pulses, warm, well-perfused, LLE edematous, anterior LLE erythema improving. NEUROLOGICAL: Cranial nerves II through XII grossly intact. Normal speech PSYCH: Normal mood, normal affect. SKIN: Warm, dry, normal turgor, no rashes or lesions noted Laboratory Results - last 24 hr 08/27/18 08/27/18 07:47 07:47 WBC 6.2 RBC 4.68 Hgb 13.7 Hct 40.6 MCV 86.8 MCH 29.4 MCHC 33.8 RDW 14.0 Plt Count 319 MPV 7.4 L Sodium 137 Potassium 4.2 Chloride 105 Carbon Dioxide 26 Anion Gap 6 L BUN 13.7 Creatinine 0.8 Est GFR (CKD-EPI)AfAm 138.93 Est GFR (CKD-EPI)NonAf 119.87 Random Glucose 85 Calcium 8.7 Phosphorus 4.0 Magnesium 2.5 H Total Bilirubin 0.4 AST 64 H ALT 105 H Alkaline Phosphatase 81 Total Protein 7.1 Albumin 3.3 L Active Medications Generic Name Dose Route Start Last Admin Trade Name Freq PRN Reason Stop Dose Admin Enoxaparin Sodium 40 mg 08/25/18 21:00 08/26/18 10:20 Lovenox - SQ 40 mg DAILY MARCELA Administration Ceftriaxone Sodium 2 gm/ 100 mls @ 200 mls/hr 08/25/18 13:00 08/26/18 10:19 Dextrose IVPB 200 mls/hr DAILY MARCELA Administration Protocol Vancomycin HCl 1,500 mg/ 500 mls @ 250 mls/hr 08/25/18 12:53 08/27/18 01:45 Dextrose IVPB 250 mls/hr Q12H MARCELA Administration Protocol Microbiology 08/25/18 13:13 Blood - Peripheral Venous Blood Culture - Preliminary NO GROWTH OBTAINED AFTER 24 HOURS, INCUBATION TO CONTINUE FOR 4 DAYS. 08/25/18 13:08 Blood - Peripheral Venous Blood Culture - Preliminary NO GROWTH OBTAINED AFTER 24 HOURS, INCUBATION TO CONTINUE FOR 4 DAYS. 08/24/18 12:12 Blood - Peripheral Venous Blood Culture - Preliminary NO GROWTH OBTAINED AFTER 48 HOURS, INCUBATION TO CONTINUE FOR 3 DAYS. 08/24/18 12:40 Blood - Peripheral Venous Blood Culture - Preliminary Staphylococcus Coagulase Neg ASSESSMENT/PLAN: pt is 28 yo obese M admitted with LLE cellulitis. Pt was started on Vanc and zosyn on 08/24. Blood cultures obtained. Initially in the first set of cultures, 1 bottle came back positive for gram + cocci. A second set was ordered and have been negative. The positive result was most likely due to contamination. Swelling and erythema improving. pt states he is currently ambulating well and is not experiencing pain. 1. Cellulitis - follow ID recs Empiric vancomycin (day 4) /cefriaxone(day 3). ID recommends to continue IV antibiotics -pt afebrile, no leukocytosis -2nd blood culture are negative -continue leg elevation -pt followed by surgery, c/w IV antibiotics 2. Obesity -Counseled on diet and exercise -HbA1c: 6.0 -bariatric referral on d/c 3. DVT ppx- Lovenox 40mg
[2018-08-27] MEDS ORDERED: DEXTROSE 5%-WATER 100 ML IVPB ONE (10:14)
[2018-08-27] MEDS: ENOXAPARIN NA (PORCINE) 40 MG/0.4 ML DISP.SYRIN SQ SCH (10:31)
[2018-08-27] MEDS: CEFTRIAXONE 2 GM in DEXTROSE 5%-WATER 100 ML IVPB SCH (10:31)
[2018-08-27 13:01] VITALS: BMI 50.8
--- NOTE | 2018-08-27 13:40 | DS ---
Physical Exam: SUBJECTIVE: Patient seen and examined at bedside. Pt has no complaints. states that pain has improved and can now walk around with no pain. OBJECTIVE: Vital Signs Period Temp Pulse Resp BP Sys/Lorenzo Pulse Ox Last 24 Hr 98.3 F-98.4 F 76-83 20-20 129-141/65-75 98 PHYSICAL EXAM GENERAL: The patient is awake, alert, and fully oriented, in no acute distress. HEAD: Normal with no signs of trauma. LUNGS: Breath sounds equal, clear to auscultation bilaterally, no wheezes, no crackles, no accessory muscle use. HEART: Regular rate and rhythm, S1, S2 without murmur, rub or gallop. ABDOMEN: Soft, nontender, nondistended, normoactive bowel sounds EXTREMITIES: 2+ pulses, warm, well-perfused, Left Lower extremity edema and erythema. decrease from previous exams. NEUROLOGICAL: Cranial nerves II through XII grossly intact. Normal speech PSYCH: Normal mood, normal affect. SKIN: Warm, dry, normal turgor, no rashes or lesions noted. LABS Laboratory Results - last 24 hr 08/27/18 08/27/18 07:47 07:47 WBC 6.2 RBC 4.68 Hgb 13.7 Hct 40.6 MCV 86.8 MCH 29.4 MCHC 33.8 RDW 14.0 Plt Count 319 MPV 7.4 L Sodium 137 Potassium 4.2 Chloride 105 Carbon Dioxide 26 Anion Gap 6 L BUN 13.7 Creatinine 0.8 Est GFR (CKD-EPI)AfAm 138.93 Est GFR (CKD-EPI)NonAf 119.87 Random Glucose 85 Calcium 8.7 Phosphorus 4.0 Magnesium 2.5 H Total Bilirubin 0.4 AST 64 H ALT 105 H Alkaline Phosphatase 81 Total Protein 7.1 Albumin 3.3 L Microbiology 08/25/18 13:13 Blood - Peripheral Venous Blood Culture - Preliminary NO GROWTH OBTAINED AFTER 48 HOURS, INCUBATION TO CONTINUE FOR 3 DAYS. 08/25/18 13:08 Blood - Peripheral Venous Blood Culture - Preliminary NO GROWTH OBTAINED AFTER 48 HOURS, INCUBATION TO CONTINUE FOR 3 DAYS. 08/24/18 12:40 Blood - Peripheral Venous Blood Culture - Final Staphylococcus Haemolyticus 08/24/18 12:12 Blood - Peripheral Venous Blood Culture - Preliminary NO GROWTH OBTAINED AFTER 72 HOURS, INCUBATION TO CONTINUE FOR [address] Lower extremity : Infiltrative/ inflammatory changes involving the soft tissues mostly anteriorly and laterally of the visualized lower extremity compatible with cellulitis. There is localized fluid collection located at the level of the anterior proximal tibia soft tissues measuring approximately 2.6 x 1.3 cm. It mostly likely represents a loculated fluid collection. No air type lucencies within. HOSPITAL COURSE: Date of Admission:08/24/18 pt is 28 yo obese M admitted with LLE cellulitis. On admission, the patients L lower extremity was swollen, with circumferential erythema, and pain. 3 days before coming to ED, pt injured his foot on a metal bucket. The next morning the patient woke up with his leg erythema and pain which continued to worsen until he came to the ED. In the ED, pt had CT of the LLE finding cellulitis. LLE U/s was performed and r/o DVT. The pt recieved Tdap vaccine. Blood cultures obtained. Pt was started on Vanc and zosyn on 08/24. Initially in the first set of cultures, 1 bottle came back positive for gram + cocci. A second set was ordered and have been negative. The positive result was most likely due to contamination. While admitted to the hospital, pt continued on IV vancomycin ( 4 days) and ceftriaxone ( 3d)as per Infectious disease recommendations. Swelling and erythema decreased. pt states he can ambulate well and is not experiencing pain. Pt is being discharged on PO Keflex x 7 d. While admitted the patients A1C was found to be 6.0. Pt counselled on diet and exercise. pt was recommended to bariatric surgeon. DISPO: HOME Date of Discharge: 08/27/18 Minutes to complete discharge: 38 Discharge Summary Reason For Visit: CELLULITIS Current Active Problems Cellulitis (Acute) Hematoma (Acute) Condition: Improved - Instructions Diet, Activity, Other Instructions: You presented to the hospital with swelling and pain in your leg due to an infection in your leg. You were treated with antibiotics. Medications: 1. Continue taking Keflex 500mg every 6 hours for 7 days (08/28-09/03). Follow up with the following physicians: 1. Primary physician in one week, please call to schedule follow up to further manage your infection and check your blood pressure. 2. Your liver enzymes were elevated on labwork. You must have your liver enzymes rechecked on Saturday 3. Bariatric surgery (Dr. Day) for weight management Activity/Diet: 1. You must continue a low fat/ low cholesterol/low sodium diet 2. continue healthy lifestyle including exercise You are being discharged home. Continue your medications as prescribed Please return to the ER if you have any signs or symptoms of chest pain, shortness of breath, uncontrollable fever, chills, nausea, vomiting, numbness, tingling, or weakness in any part of your body, changes in vision, or slurred speech. Please return to the ER if symptoms persist, worsen, or new symptoms arise. Referrals: Parag Samaniego MD [Staff Physician] - Madison Escudero RES [Resident] - Andrew Day MD [Staff Physician] - Disposition: HOME - Home Medications Comprehensive Discharge Medication List: Ambulatory Orders Cephalexin [Keflex] 500 mg PO Q6H #28 capsule 08/27/18 This patient is new to me today: No Emergency Visit: No Critical Care patient: No - Discharge Referral Referred to [facility] Med P.C.: No
[2018-08-27 14:42] VITALS: BP 127/77; PULSE 70; TEMP 97.9
--- NOTE | 2018-08-27 15:31 | PN ---
Teaching Attending Note Name of Resident: Madison Escudero ATTENDING PHYSICIAN STATEMENT I saw and evaluated the patient. I reviewed the resident's note and discussed the case with the resident. I agree with the resident's findings and plan as documented. SUBJECTIVE: Reports significant improvement in LLE pain/tenderness/erythema. No fever/chills. OBJECTIVE: Afebrile, Hemodynamically Stable. Last Vital Signs Temp Pulse Resp BP Pulse Ox 97.9 F 70 20 127/77 98 08/27/18 14:40 08/27/18 14:40 08/27/18 14:40 08/27/18 14:40 08/26/18 21:00 Heart - S1, S2, RRR Lungs - clear to auscultation Abdomen - High BMI, Soft, non-tender. Extremities - LLE erythema/tenderness/swelling improving. Area on anterior mares with some hyperpigmentation. Laboratory Results - last 24 hr 08/27/18 08/27/18 07:47 07:47 WBC 6.2 RBC 4.68 Hgb 13.7 Hct 40.6 MCV 86.8 MCH 29.4 MCHC 33.8 RDW 14.0 Plt Count 319 MPV 7.4 L Sodium 137 Potassium 4.2 Chloride 105 Carbon Dioxide 26 Anion Gap 6 L BUN 13.7 Creatinine 0.8 Est GFR (CKD-EPI)AfAm 138.93 Est GFR (CKD-EPI)NonAf 119.87 Random Glucose 85 Calcium 8.7 Phosphorus 4.0 Magnesium 2.5 H Total Bilirubin 0.4 AST 64 H ALT 105 H Alkaline Phosphatase 81 Total Protein 7.1 Albumin 3.3 L Current Medications Generic Name Dose Route Start Last Admin Trade Name Rina PRN Reason Stop Dose Admin Enoxaparin Sodium 40 mg 08/25/18 21:00 08/27/18 10:31 Lovenox - SQ 40 mg DAILY MARCELA Administration Ceftriaxone Sodium 2 gm/ 100 mls @ 200 mls/hr 08/25/18 13:00 08/27/18 10:31 Dextrose IVPB 200 mls/hr DAILY MARCELA Administration Protocol Vancomycin HCl 1,500 mg/ 500 mls @ 250 mls/hr 08/25/18 12:53 08/27/18 13:26 Dextrose IVPB 250 mls/hr Q12H MARCELA Administration Protocol ASSESSMENT AND PLAN: 28 year old morbidly obese male with no significant medical history, presents with LLE Cellulitis, found to have Blood Cx positive for Staph hemolyticus. 1. LLE cellulitis - significantly improved. Coag neg Bacteremia - Staph hemolyticus - likely contaminant. Repeat Blood Cx negative. CT LE - Cellulitis with loculated collection. Evaluated by Surgery - no need for intervention Afebrile, Hemodynamically Stable. Treated with Ceftriaxone/Vancomycin - for discharge on oral Keflex for an additional 7 days as per ID. 2. Morbid obesity - BMI 46. May benefit from bariatric surgery consultation/ referral on discharge. 3. Elevated Transaminases, AST 64/ALT 105, likely sec to cholestasis due to Ceftriaxone. Discussed with ID - recommends Keflex on discharge. Repeat LFTs on 09/01/18. Medically optimized for discharge on oral Abx.
== END 2018-08-27 16:21 | disposition home or self-care (01) | DRG 383 ==
LOC: EDSEX 10:51 → JER 10:51 → JERBED 16:19 → J5S 18:40 → UNDODISIN 08-26 07:19
PROVIDERS: ADMIT Internal Medicine
DX: L03.116 Cellulitis of left lower limb (principal); L02.416 Cutaneous abscess of left lower limb; Z68.42 Body mass index [BMI] 45.0-49.9, adult; E66.01 Morbid (severe) obesity due to excess calories; K71.0 Toxic liver disease with cholestasis; T36.1X5A Adverse effect of cephalosporins and other beta-lactam antibiotics, initial encounter; S80.12XA Contusion of left lower leg, initial encounter; Z86.73 Personal history of transient ischemic attack (TIA), and cerebral infarction without residual deficits; W22.8XXA Striking against or struck by other objects, initial encounter; Y93.89 Activity, other specified; Y92.69 Other specified industrial and construction area as the place of occurrence of the external cause; Y99.0 Civilian activity done for income or pay; Y92.89 Other specified places as the place of occurrence of the external cause
CPT/HCPCS: 36415; 73701-TC-RT; 80048; 80053; 81003; 82803; 83036; 83605; 83735; 84100; 84484; 85025; 85027; 85610; 85730; 86850; 86900; 86901; 87040; 87186; 87389; 90715; 93005; 93010; 93971-TC; 99284-25; J7030

== ENCOUNTER 2020-04-08 22:19 | Emergency (ER) | payer SELFPAY ==
[2020-04-08 22:26] VITALS: TEMP 97; BMI 48.4
[2020-04-09] MEDS ORDERED: CEPHALEXIN MONOHYDRATE 500 MG CAPSULE (UD) PO ONE (01:00)
[2020-04-09] MEDS ORDERED: CEPHALEXIN MONOHYDRATE 500 MG CAPSULE (UD) ONE (01:03)
[2020-04-09 03:32] VITALS: BP 125/67; PULSE 84
== END 2020-04-09 03:32 | disposition home or self-care (01) ==
LOC: JER 22:19
DX: L03.115 Cellulitis of right lower limb (principal)
CPT/HCPCS: 93971-TC; 99283-25

== ENCOUNTER 2023-08-21 22:34 | Emergency (ER) | payer OTHER ==
[2023-08-21 22:47] VITALS: BP 144/99; PULSE 86; RESP 18; TEMP 98.5; BMI 62.8
[2023-08-21] MEDS ORDERED: SULFAMETHOXAZOLE/TRIMETHOPRIM 800MG/160MG D.S. TABLET ONE (23:57)
[2023-08-21] MEDS: SULFAMETHOXAZOLE/TRIMETHOPRIM 800MG/160MG D.S. TABLET PO ONE (23:59)
== END 2023-08-22 | disposition home or self-care (01) ==
LOC: JER 22:34
DX: L02.211 Cutaneous abscess of abdominal wall (principal)
CPT/HCPCS: 99283-25

== ENCOUNTER 2023-11-03 22:33 | Emergency (ER) | payer OTHER ==
[2023-11-03 22:45] VITALS: BP 136/84; PULSE 77; RESP 20; TEMP 98.3; BMI 63.1
[2023-11-03] MEDS ORDERED: ERYTHROMYCIN 0.5% OPHTHALMIC OINTMENT 3.5 GM TUBE ONE (22:48)
[2023-11-03] MEDS ORDERED: AMOX TR/POT CLAV 875MG/125MG TABLETS (FP) ONE (22:53)
[2023-11-03] MEDS ORDERED: SULFAMETHOXAZOLE/TRIMETHOPRIM 800MG/160MG D.S. TABLET ONE (22:53)
[2023-11-03] MEDS: SULFAMETHOXAZOLE/TRIMETHOPRIM 800MG/160MG D.S. TABLET PO ONE (22:54)
[2023-11-03] MEDS: AMOX TR/POT CLAV 875MG/125MG TABLETS (FP) PO ONE (22:54)
== END 2023-11-03 23:00 | disposition home or self-care (01) ==
LOC: JERFT 22:33
DX: H00.031 Abscess of right upper eyelid (principal)
CPT/HCPCS: 99283-25